=== PATIENT | female | born 1990 | race Caucasian/White ===

== ENCOUNTER 2019-07-02 16:04 | Day surgery (SDC) | payer BC ==
[~2019-07-02 16:04] MED LIST: Bupivacaine HCl 0.5%/Epinephrine 1:200,000/PF 30 ml Vial ONE; Bupivacaine/Epinephrine 0.25% 30 ML VIAL ONE; Dexamethasone 20 MG/5 ML VIAL ONE; Lidocaine 1% PF 5 ML VIAL ONE; Ondansetron PF 4 MG/2 ML Vial ONE; PROPOFOL 200 MG/20 ML VIAL ONE; Rocuronium Bromide 10 MG/ML (10ML VIAL) ONE
[2019-07-02] MEDS ORDERED: Fentanyl 100 MCG/2 ML VIAL ONE (16:17)
[2019-07-02] MEDS ORDERED: Scopolamine 1.5 mg/72 hour Patch ONE (16:34)
[2019-07-02] MEDS ORDERED: Famotidine/PF 20 mg/2ml Vial ONE (16:34)
--- NOTE | 2019-07-02 17:23 | HP ---
HISTORY: Chandrakant Caldera is a 28-year-old female, 4 weeks , 2, para 2, onset of lower abdominal pain last night, localized to her right lower quadrant, presenting to the [facility], where she underwent a CT scan confirming appendicitis. White count was 19,000. ALLERGIES: NONE. SOCIAL HISTORY: Tobacco, none. Alcohol, none. MEDICATIONS: None. PAST MEDICAL HISTORY: Noncontributory. PAST SURGICAL HISTORY: Noncontributory. REVIEW OF SYSTEMS: Ten-point noncontributory. PHYSICAL EXAMINATION: VITAL SIGNS: Blood pressure 112/60, heart rate 68, respiratory rate 16. HEAD, EARS, EYES, NOSE, AND THROAT: Unremarkable. LUNGS: Clear to auscultation. CARDIAC: Regular rate and rhythm. No murmur or gallop. ABDOMEN: Soft. Tenderness in right lower quadrant. No guarding or rebound. EXTREMITIES: Unremarkable. ASSESSMENT AND PLAN: Acute appendicitis confirmed by CT scan at [facility]. PLAN: Laparoscopic video appendectomy. Risks of infection, bleeding, reoperation, open procedure were discussed. Questions were answered. Job ID: [id number]
[2019-07-02] MEDS ORDERED: SUGAMMADEX SODIUM 200 MG/2 ML VIAL ONE (17:29)
[2019-07-02] MEDS ORDERED: Meperidine HCl/PF 25 MG/ML VIAL ONE (17:45)
--- NOTE | 2019-07-02 20:56 | OP ---
DATE OF PROCEDURE: 07/02/2019 PREOPERATIVE DIAGNOSIS: Acute appendicitis. POSTOPERATIVE DIAGNOSIS: Acute appendicitis. PROCEDURE PERFORMED: Laparoscopic video appendectomy. ANESTHESIA: General, local 0.5% Marcaine with epinephrine 30 mL. DESCRIPTION OF PROCEDURE: The patient was taken to the operating room where under general anesthesia, Parikh catheter placed at the beginning of the incision and removed at the end. Abdomen was prepared with ChloraPrep and draped in routine fashion. 0.5% Marcaine with epinephrine was infiltrated in the skin and subcutaneous tissue about each port site. Infraumbilical incision made and pneumoperitoneum to 15 mmHg was obtained with a Veress needle, replaced with a 5 port and laparoscope inserted. Suprapubic incision made and a 12 port placed. Right lateral subcostal incision made and a 5 port placed. Appendix was acutely inflamed. Mesoappendix was taken down with the LigaSure. The stump of the appendix divided with Endo-KIRK blue load stapler. Stapled cecal stump. Hemostasis gained with clips. Appendix removed, submitted to Pathology. Good hemostasis noted. All this and pericecal area irrigated, irrigant evacuated. Hemostasis assured. Pneumoperitoneum evacuated. All irrigant evacuated and all instruments were removed and suprapubic fascia was approximated with 0 Vicryl and skin with subdermal 4-0 Monocryl and [place] glue applied. Job ID: [id number]
== END 2019-07-02 19:40 | disposition home or self-care (01) ==
LOC: SDC 16:04
PROVIDERS: ATTEND Specialist
PROC: 0DTJ4ZZ Resection of Appendix, Percutaneous Endoscopic Approach (ICD-10-PCS; principal; 2019-07-02)
DX: K35.80 Unspecified acute appendicitis (principal)
CPT/HCPCS: 88304; J0131; J0670; J1100; J2001; J2175; J2405; J2704; J3010; S0028